=== PATIENT | female | born 1955 | race Caucasian/White ===

== ENCOUNTER 2017-04-13 17:44 | Observation (INO) ==
[2017-04-13] MEDS ORDERED: Ipratropium/Albuterol Neb 3 ML IH ONE ×3 (18:06→20:28)
--- NOTE | 2017-04-13 18:09 | Emergency Department Note ---
Disposition Clinical Impression: Shortness of breath Disposition: Admitted As Inpatient Condition: Fair Time of Disposition: 19:45 SOB HPI - General Chief Complaint: ED Shortness of Breath/Dyspnea Stated Complaint: ARTI Time Seen by Provider: 04/13/17 17:59 Source: patient, EMS Limitations: no limitations - History of Present Illness 2 day history of increased nonproductive cough and shortness of breath with wheezing. She got better with the DuoNeb given in the ambulance on the way here. She lives at a long-term because she had a BKA in September and hopefully return home in the next 30 days. Pt Subjective Complaint: shortness of breath, cough - Related Data Home Medications Medication Instructions Recorded Confirmed RX: Sertraline [Zoloft] 100 mg PO DAILY 04/16/15 04/13/17 RX: Mirtazapine [Remeron] 30 mg PO HS 03/16/16 11/02/16 RX: Atorvastatin [Lipitor] 10 mg PO DAILY 09/10/16 04/13/17 RX: Cholecalciferol (D-3) [Vitamin 1,000 mcg PO DAILY 09/10/16 04/13/17 D] RX: Clopidogrel [Plavix] 75 mg PO DAILY 09/10/16 04/13/17 RX: Furosemide [Lasix] 60 mg PO 0800,1400 09/10/16 04/13/17 RX: Gabapentin [Neurontin] 1,200 mg PO TID 09/10/16 04/13/17 RX: Insulin Glargine,Hum.rec.anlog 15 unit SQ BID 09/10/16 04/13/17 [Basaglar Kwikpen U-100] RX: Insulin LISPRO [HumaLOG] 2 - 8 units SQ ACHS 09/10/16 04/13/17 RX: Insulin LISPRO [HumaLOG] 8 units SQ TIDWM 09/10/16 04/13/17 RX: Loratadine [Allergy Relief] 10 mg PO DAILY 09/10/16 04/13/17 RX: Metoprolol [Lopressor] 100 mg PO BID 09/10/16 04/13/17 RX: Multivitamin,Stress Formula 1 tab PO DAILY 09/10/16 11/02/16 [Stress Formula] RX: [place]-3/Dha/Epa/Fish Oil [Fish 2 each PO DAILY 09/10/16 11/02/16 Oil 1,000 mg Softgel] RX: Potassium Chloride [K-Tab ER] 20 meq PO BID 09/10/16 04/13/17 RX: amLODIPine [Norvasc] 5 mg PO DAILY 09/10/16 04/13/17 RX: Acetaminophen [Tylenol] 1,000 mg PO Q6H PRN 11/02/16 11/02/16 RX: Albuterol Sulfate [Ventolin 2 puff IH Q6H PRN 11/02/16 11/02/16 Hfa] RX: Oxygen 2 l NS AD 11/02/16 04/13/17 RX: Sennosides/Docusate Sodium 1 each PO BID PRN 11/02/16 04/13/17 [Senna Plus] RX: Silver Sulfadiazine Cream 1 appl TP DAILY 11/02/16 04/13/17 [Silvadene] Metformin HCl [Fortamet] 500 mg PO BID 04/13/17 04/13/17 RX: Oxycodone HCl 2.5 mg PO HS 04/13/17 04/13/17 Previous Rx's Medication Instructions Recorded RX: Rivaroxaban [Xarelto] 15 mg PO 1700 tablet 08/10/16 RX: Diltiazem CD (24hr) [Cardizem 120 mg PO DAILY #30 cap.er.24h 09/14/16 CD] RX: OxyCODONE/APAP 5/325 [Percocet 1 each PO Q6H PRN #15 tab 09/14/16 5/325 MG] levoFLOXacin [Levaquin] 500 mg PO DAILY #7 tablet 11/05/16 Allergies Allergy/AdvReac Type Severity Reaction Status Date / Time codeine Allergy See Verified 09/10/16 08:39 Comments latex Allergy See Verified 04/13/17 18:02 Comments Paroxetine [From Paxil] Allergy See Verified 09/10/16 08:39 Comments Penicillins Allergy See Verified 09/10/16 08:39 Comments Constitutional: Denies: fever, chills ENT ED: Denies: congestion Cardiovascular: Reports: dyspnea on exertion. Denies: chest pain, palpitations Respiratory: Reports: cough, dyspnea. Denies: sputum production Gastrointestinal: Denies: nausea, vomiting, diarrhea Musculoskeletal: Denies: myalgia Neurological: Denies: headache Endocrine: Reports: fatigue Past Medical History - Past Medical History Medical history: Reports: arthritis, atrial fibrillation, COPD, coronary artery disease, DVT, diabetes, hyperlipidemia, hypertension, pulmonary embolus, renal disease, other Surgical history: Reports: other Psychiatric history: Reports: anxiety, depression BRIAR CUTTER history: Reports: no BRIAR CUTTER history - Social History Smoking Status: Current every day smoker Smokeless Tobacco Status: No Alcohol use: Reports: none Drug use: Reports: none Physical Exam - General Limitations: no limitations General appearance: alert, in no apparent distress - Head Head exam: atraumatic, normocephalic - Eye Eye exam: Present: normal appearance - ENT ENT exam: normal oropharynx, mucous membranes moist, normal external ear exam - Neck Neck exam: Present: normal inspection - Chest Chest inspection: Present: normal inspection, symmetric chest wall rise - Respiratory Respiratory exam: Present: wheezes (Inspiratory expiratory wheezes with fair air exchange.). Absent: respiratory distress - Cardiovascular Cardiovascular exam: Present: regular rate, normal rhythm, normal heart sounds. Absent: systolic murmur, diastolic murmur - Abdominal Exam Abdominal exam: Present: soft, Non-Tender - Extremities Exam Extremities exam: Present: normal inspection. Absent: pedal edema, calf tenderness (no Calf erythema cord or swelling) - Neurological Exam Neurological exam: Present: alert - Psychiatric Psychiatric exam: Present: normal affect, normal mood - Skin Skin exam: Present: warm, dry Course Vital Signs Temperature 98.7 F 04/13/17 17:48 Pulse Rate 101 04/13/17 17:48 Respiratory Rate 22 04/13/17 17:48 Blood Pressure 133/86 04/13/17 17:48 O2 Sat by Pulse Oximetry 97 04/13/17 17:48 Temperature 98.7 F 04/13/17 17:48 Pulse Rate 84 04/13/17 20:33 Respiratory Rate 18 04/13/17 20:33 Blood Pressure 161/109 04/13/17 20:33 O2 Sat by Pulse Oximetry 94 04/13/17 20:33 Oxygen Delivery Oxygen Delivery Nasal Cannula Shortness of Breath/Dyspnea - MDM Narrative Medical decision making narrative: Shortness of breath. There might be 2 aspects at work here. She appears to have responded to DuoNeb nebs so I believe she does have reactive airways. Chest x-ray suggestive of congestive heart failure. We will treat both. She is already on 80 of Lasix by mouth per day. She was given 100 mg IV 1 here in the ER and will be dosed she will 8. A Goff catheter was placed for urine output. Nitropaste was placed. I am told that we do have echocardiogram here at [facility] tomorrow in case a repeat echo would like to be obtained as it has been about 2 years since her last one. Diabetes. We will place her on an aggressive sliding scale and put her on a low dose of Solu-Medrol. I spoke with the covering hospitalist and presented the case. He accepted admission. She is in improved condition awaiting transfer to the floor. - Medical Records Medical records reviewed: Yes I reviewed the patient's medical records. - Lab Data Lab results reviewed: Yes I reviewed the patient's lab results. Result diagrams: 04/13/17 18:50 04/13/17 18:50 Lab Results 04/13/17 04/13/17 04/13/17 Range/Units 18:50 18:50 18:50 WBC 8.0 (4.3-11.1) K/mcL RBC 4.54 (3.82-4.97) M/mcL Hgb 12.7 (11.5-15.4) g/dL Hct 42.8 (35.3-44.9) % MCV 94.3 (83.0-100.0) fL MCH 28.0 (28.0-33.3) pg MCHC 29.7 L (31.6-35.5) g/dL RDW 18.5 H (11.5-14.5) % Plt Count 201 (140-400) K/mcL MPV 11.2 (9.4-12.4) fL Immature Gran % 1.1 (0-4) % Seg Neutrophils % 86.7 % Lymphocytes % 9.4 % Monocytes % 2.3 % Eosinophils % 0.1 % Basophils % 0.4 % Neutrophils # 6.9 (1.6-8.9) K/mcL Lymphocytes # 0.8 (0.6-4.6) K/mcL Monocytes # 0.2 (0.0-1.3) K/mcL Eosinophils # 0.0 (0.0-0.6) K/mcL Basophils # 0.0 (0.0-0.2) K/mcL Sodium 142 (136-145) mEq/L Potassium 5.1 (3.5-5.1) mEq/L Chloride 101 (98-107) mEq/L Carbon Dioxide 35 H (23-29) mEq/L BUN 28 H (8-23) mg/dL Creatinine 1.08 (0.60-1.20) mg/dL Est GFR ( Amer) > 60 (> 60) Est GFR (Non-Af Amer) 52 L (> 60) BUN/Creatinine Ratio 26 (6-26) Glucose 205 H (70-105) mg/dL Calculated Osmolality 305 H (280-300) Calcium 9.5 (8.6-10.3) mg/dL Total Bilirubin 0.4 (0.3-1.0) mg/dL AST 24 (13-39) Units/L ALT 18 (7-52) Units/L Alkaline Phosphatase 93 (34-104) Units/L Troponin I 0.03 (< 0.04) ng/mL B-Natriuretic Peptide 199 H (Less than 100) pg/mL Serum Total Protein 7.6 (6.4-8.9) g/dL Albumin 4.5 (3.5-5.7) g/dL Globulin 3.1 (2.4-3.5) g/dL Albumin/Globulin Ratio 1.5 (1.1-2.2) - Radiology Data Radiology results reviewed: Yes I reviewed the patient's radiology results. - EKG Data EKG attestation: Yes I reviewed and interpreted this EKG. EKG results narrative: EKG as interpreted by me atrial fibrillation 92 bpm. There appears to be multifocal PVC 2 and the rhythm strip. No T-wave abnormalities. Normal axis. No evidence of hypertrophy. No ST elevations or depressions. Except for low voltage in multiple leads on today's study no significant change from October 2016.
[2017-04-13 18:55] LABS: Basophils % 0.4 %; Eosinophils % 0.1 %; Hematocrit 42.8 % (35.3-44.9); Hemoglobin 12.7 g/dL (11.5-15.4); Immature Granulocytes % 1.1 % (0-4); Lymphocytes # 0.8 K/mcL (0.6-4.6); Lymphocytes % 9.4 %; Mean Corpuscular HGB Conc 29.7 g/dL (31.6-35.5); Mean Corpuscular Volume 94.3 fL (83.0-100.0); Mean Platelet Volume 11.2 fL (9.4-12.4); Monocytes # 0.2 K/mcL (0.0-1.3); Monocytes % 2.3 %; Neutrophils # 6.9 K/mcL (1.6-8.9); Platelet Count 201 K/mcL (140-400); Red Blood Count 4.54 M/mcL (3.82-4.97); Red Cell Distribution Width 18.5 % (11.5-14.5); Segmented Neutrophils % 86.7 %
[2017-04-13 19:08] LABS: Alanine Aminotransferase 18 Units/L (7-52); Albumin 4.5 g/dL (3.5-5.7); Albumin/Globulin Ratio 1.5 (1.1-2.2); Alkaline Phosphatase 93 Units/L (34-104); Aspartate Amino Transferase 24 Units/L (13-39); BUN/Creatinine Ratio 26 (6-26); Bilirubin,Total 0.4 mg/dL (0.3-1.0); Blood Urea Nitrogen 28 mg/dL (8-23); Calcium 9.5 mg/dL (8.6-10.3); Carbon Dioxide 35 mEq/L (23-29); Chloride 101 mEq/L (98-107); Globulin 3.1 g/dL (2.4-3.5); Glucose 205 mg/dL (70-105); Osmolality,Calculated 305 (280-300); Potassium 5.1 mEq/L (3.5-5.1); Sodium 142 mEq/L (136-145); Total Protein 7.6 g/dL (6.4-8.9); Troponin I 0.03 ng/mL (< 0.04); eGFR For African Americans > 60 (> 60); eGFR For Non-African Americans 52 (> 60)
[2017-04-13] MEDS ORDERED: Furosemide 40 MG/4 ML VIAL IVP ONE (20:02)
[2017-04-13] MEDS ORDERED: MethylPREDNISolone 40 MG/ML VIAL IVP ONE (20:03)
[2017-04-13] MEDS ORDERED: Nitroglycerin 1 INCH/GM PACKET TP SCH (21:45)
[2017-04-13] MEDS ORDERED: Albuterol 2.5 MG/3 ML NEBULIZER IH PRN (21:45)
[2017-04-13] MEDS ORDERED: Naloxone 0.4 MG/ML INJ IVP PRN (21:45)
[2017-04-13] MEDS ORDERED: *HR* Dextrose 50 % in Water (Syg) 50 ML SYRINGE IVP PRN (23:04)
[2017-04-13] MEDS ORDERED: Dextrose Gel 15 GM PO PRN ×2 (23:04)
[2017-04-13] MEDS ORDERED: D5% in Water 1,000 ML IVC PRN (23:04)
[2017-04-13] MEDS: Furosemide 20 MG/2 ML VIAL IVP SCH (23:15)
[2017-04-13] MEDS: MethylPREDNISolone 40 MG/ML VIAL IVP SCH (23:15)
[2017-04-14] MEDS: MethylPREDNISolone 40 MG/ML VIAL IVP SCH ×4 (03:22→22:03)
[2017-04-14 03:57] LABS: Basophils % 0.1 %; Hematocrit 42.3 % (35.3-44.9); Hemoglobin 12.7 g/dL (11.5-15.4); Lymphocytes # 0.9 K/mcL (0.6-4.6); Lymphocytes % 11.1 %; Mean Corpuscular Hemoglobin 27.4 pg (28.0-33.3); Mean Corpuscular Volume 91.4 fL (83.0-100.0); Mean Platelet Volume 11.4 fL (9.4-12.4); Monocytes # 0.2 K/mcL (0.0-1.3); Neutrophils # 6.6 K/mcL (1.6-8.9); Platelet Count 189 K/mcL (140-400); Red Blood Count 4.63 M/mcL (3.82-4.97); Red Cell Distribution Width 18.1 % (11.5-14.5); Segmented Neutrophils % 84.8 %
[2017-04-14 04:13] LABS: BUN/Creatinine Ratio 30 (6-26); Blood Urea Nitrogen 30 mg/dL (8-23); Calcium 9.3 mg/dL (8.6-10.3); Carbon Dioxide 33 mEq/L (23-29); Chloride 101 mEq/L (98-107); Glucose 243 mg/dL (70-105); Magnesium 2.2 mg/dL (1.6-2.6); Osmolality,Calculated 308 (280-300); Potassium 4.3 mEq/L (3.5-5.1); Sodium 142 mEq/L (136-145); eGFR For African Americans > 60 (> 60); eGFR For Non-African Americans 56 (> 60)
[2017-04-14] MEDS: Furosemide 20 MG/2 ML VIAL IVP SCH (06:29)
[2017-04-14] MEDS: Insulin LISPRO 300 UNITS/3 ML VIAL SQ SCH ×3 (08:35→16:57)
[2017-04-14] MEDS: Gabapentin 400 MG CAPSULE PO SCH ×3 (08:36→22:02)
[2017-04-14] MEDS: Diltiazem CD (24hr) 120 MG CAPSULE PO SCH (08:37)
[2017-04-14] MEDS: levoFLOXacin 500 MG TABLET PO SCH (08:37)
[2017-04-14] MEDS: Loratadine 10 MG TABLET PO SCH (08:37)
[2017-04-14] MEDS: amLODIPine 5 MG TABLET PO SCH (08:37)
[2017-04-14] MEDS ORDERED: NON-FORMULARY MEDICATION 1 EACH EACH (Potassium Chloride [K-Tab Er] 20 MEQ) PO SCH (09:00)
--- NOTE | 2017-04-14 12:12 | Internal Med History&Physical ---
Date of Encounter: 04/14/17 Time of Encounter: 12:06 Assessment and Plan (1) Acute exacerbation of chronic obstructive pulmonary disease (COPD) Current visit: No Status: Acute The etiology is uncertain whether exacerbation with asthma or with congestive heart failure. We will evaluate echocardiogram continue IV antibiotics and steroids, follow clinically. She will be maintained on oxygen as she desaturates when on room air. 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 (3) Diabetes mellitus Current visit: No Status: Chronic We will continue current regimen and sliding scale insulin. Qualifiers: Diabetes mellitus type: type 2 Diabetes mellitus complication status: with skin complications Diabetes mellitus complication detail: with foot ulcer Diabetes mellitus meterman insulin use: with alf use Qualified Code(s) : E11.621 - Type 2 diabetes mellitus with foot ulcer; L97.509 - Non-pressure chronic ulcer of other part of unspecified foot with unspecified severity; Z79.4 - jail (current) use of insulin (4) Atrial fibrillation Current visit: No Status: Acute Chronic with rate controlled. She is treated with chronic Xarelto Qualifiers: Atrial fibrillation type: chronic Qualified Code(s): I48.2 - Chronic atrial fibrillation (5) H/O deep venous thrombosis Current visit: No Status: Resolved On chronic Xarelto. (6) Chronic venous hypertension (idiopathic) with ulcer of left lower extremity Current visit: No Status: Chronic As mentioned in exam, seems improved. (7) Hypertension Current visit: No Status: Chronic Will continue current regimen and monitor. Qualifiers: Hypertension type: essential hypertension Qualified Code(s): I10 - Essential (primary) hypertension (8) Chronic kidney disease Current visit: No Status: Chronic Clinically stable and will follow with diuresis. Qualifiers: Chronic kidney disease stage: stage 3 (moderate) Qualified Code(s): N18.3 - Chronic kidney disease, stage 3 (moderate) (9) Tobacco abuse Current visit: No Status: Chronic She has been smoking until yesterday, even at the facility, going outside. She states that she has no quit smoking, totally. She thinks she was only using about 6 cigarettes per day while at the facility but before was smoking for roughly 40-80 packyears. Internal Medicine - H&P: HPI Admitted From: Long-term Nursing Facility Plans for Post Hospital Care: Transfer Longterm Facility History of present illness: Ms. 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 She had been fitted with a prosthesis and underwent therapy. She was to be discharged about a month ago. She entered a new program which required 30 days more of her residence at the extended care facility and was to go home yesterday. However, over the last week, she has had progressive increase of cough with minimal increase in shortness of breath. Yesterday, she became more short of breath, began producing clear white sputum in large amounts, denies hemoptysis or colored phlegm, etc. She denied fevers chills or sweats until this morning when she began to sweat, mildly. She has been using intermittent oxygen at the facility for the last several weeks, at least. She states that recently, this has been use, only at night. She is not sure of the flow level. She denies prior history of congestive heart failure states it only recently where she diagnosed with COPD. She admits to having had an echocardiogram but she is not sure if it was in the last year, or not. She denies upper respiratory symptoms, sore throat, other symptoms GI or urinary changes, etc. She is status post bilateral cataract replacement with intraocular lens implants. She has only central mandibular teeth. She states she has had 4 strokes, most mild. She has been in atrial fibrillation long-term with treatment with Peridex and recently had anticoagulation changed. She has over 20 years history of diabetes, type II with peripheral neuropathy, hypertension, hyperlipidemia. Review of systems is otherwise unremarkable. Past Med Surg Social Fam HX - Past Medical History Medical history: arthritis, atrial fibrillation, COPD, coronary artery disease, DVT, diabetes, hyperlipidemia, hypertension, pulmonary embolus, renal disease, other Psychiatric history: anxiety, depression - Past Surgical History Surgical History: other - Social History Smoking Status: Current every day smoker Smokeless Tobacco Status: No Alcohol use: none Drug use: none - Family History Mother Family Member Ethnicity: Non- Twin of Family Member: Yes, Identical Living Status: Age at : 72 Cause of : Alzheimers Hx Family Cardiac Disorders: Yes Hx Family Respiratory Disorders: No Hx Family Cancer: Yes (aunt) Hx Family GI Disorders: Yes Hx Family Endocrine Disorder: Yes Hx Family Neurologic Disorders: Yes Hx Family HEENT Disorders: No Hx Family Autoimmune Disorders: No Father Living Status: Age at : 74 Cause of : Diabetes Mellitus Hx Family Cardiac Disorders: Yes Hx Family Endocrine Disorder: Yes (diabetes) Brother Living Status: Age at : 40 Hx Family Endocrine Disorder: Yes (diabetes) Internal Medicine - H&P: Meds Sertraline [Zoloft] 100 mg PO DAILY 04/16/15 [History] Mirtazapine [Remeron] 30 mg PO HS 03/16/16 [History] Rivaroxaban [Xarelto] 15 mg PO 1700 tablet 08/10/16 [Rx] Atorvastatin [Lipitor] 10 mg PO DAILY 09/10/16 [History] Cholecalciferol (D-3) [Vitamin D] 1,000 mcg PO DAILY 09/10/16 [History] Clopidogrel [Plavix] 75 mg PO DAILY 09/10/16 [History] Furosemide [Lasix] 60 mg PO 0800,1400 09/10/16 [History] Gabapentin [Neurontin] 1,200 mg PO TID 09/10/16 [History] Insulin Glargine,Hum.rec.anlog [Basaglar Kwikpen U-100] 15 unit SQ BID 09/10/16 [History] Insulin LISPRO [HumaLOG] 2 - 8 units SQ ACHS 09/10/16 [History] Insulin LISPRO [HumaLOG] 8 units SQ TIDWM 09/10/16 [History] Loratadine [Allergy Relief] 10 mg PO DAILY 09/10/16 [History] Metoprolol [Lopressor] 100 mg PO BID 09/10/16 [History] Multivitamin,Stress Formula [Stress Formula] 1 tab PO DAILY 09/10/16 [History] [place]-3/Dha/Epa/Fish Oil [Fish Oil 1,000 mg Softgel] 2 each PO DAILY 09/10/16 [ History] Potassium Chloride [K-Tab ER] 20 meq PO BID 09/10/16 [History] amLODIPine [Norvasc] 5 mg PO DAILY 09/10/16 [History] Diltiazem CD (24hr) [Cardizem CD] 120 mg PO DAILY #30 cap.er.24h 09/14/16 [Rx] OxyCODONE/APAP 5/325 [Percocet 5/325 MG] 1 each PO Q6H PRN #15 tab 09/14/16 [Rx] Acetaminophen [Tylenol] 1,000 mg PO Q6H PRN 11/02/16 [History] Albuterol Sulfate [Ventolin Hfa] 2 puff IH Q6H PRN 11/02/16 [History] Oxygen 2 l NS AD 11/02/16 [History] Sennosides/Docusate Sodium [Senna Plus] 1 each PO BID PRN 11/02/16 [History] Silver Sulfadiazine Cream [Silvadene] 1 appl TP DAILY 11/02/16 [History] levoFLOXacin [Levaquin] 500 mg PO DAILY #7 tablet 11/05/16 [Rx] Metformin HCl [Fortamet] 500 mg PO BID 04/13/17 [History] Oxycodone HCl 2.5 mg PO HS 04/13/17 [History] 3 Allergy/AdvReac Type Severity Reaction Status Date / Time codeine Allergy See Verified 09/10/16 08:39 Comments latex Allergy See Verified 04/13/17 18:02 Comments Paroxetine [From Paxil] Allergy See Verified 09/10/16 08:39 Comments Penicillins Allergy See Verified 09/10/16 08:39 Comments All Systems PM: A 10-system review of systems was performed and is negative for pertinent findings except as documented above in the HPI. Review of systems: Unremarkable except as per history of present illness. - Constitutional Vitals: Temp Pulse Resp BP Pulse Ox 98 F 86 16 144/76 96 04/14/17 07:34 04/14/17 11:59 04/14/17 11:59 04/14/17 11:59 04/14/17 11:59 General appearance: Present: A&O X 3, answers questions appropriately - Head Head exam: Present: atraumatic, normal inspection, normocephalic - Eye Eye exam: Present: EOMI, PERRL, conjuntiva pink. Absent: conjunctival injection , scleral icterus - ENT ENT exam: Present: mucous membranes moist, normal external ear exam Additional comments: Patient is edentulous except for central mandibular teeth. No intraoral lesions seen. - Neck Neck exam general surgery: Present: full ROM, normal inspection, supple, trachea midline. Absent: lymphadenopathy, tenderness, nuchal rigidity, thyromegaly Additional comments: Carotids are 2+ without bruit. - Respiratory Respiratory exam: Absent: accessory muscle use Additional comments: She has a few wheezes, scattered diffusely. Minimal rales at bases. No localizing findings. - Cardiovascular Cardiovascular exam: Present: irregular rhythm. Absent: systolic murmur Additional comments: Irregularly irregular consistent with atrial fibrillation. - GI/Abdominal GI/Abdominal exam: Present: normal bowel sounds, soft. Absent: bruit, hepatomegaly, mass, splenomegaly, tenderness Additional comments: Obese and therefore difficult to palpate deeply. - Extremities Exam Extremities exam: Present: normal inspection, warm. Absent: calf tenderness, pedal edema Additional comments: Status post right BKA, status post left digit - all -amputation capillary refill is good at both amputation sites with no open lesions. She has evidence of chronic venous stasis at the left ankle and calf but this seems to have improved and there is no evidence of cellulitis, currently. - Back Exam Back exam: Absent: CVA tenderness (L), CVA tenderness (R) - Neurological Exam Neurological exam: Present: CN II-XII intact, oriented X3, no focal deficits. Absent: facial droop, speech deficit - Psychiatric Psychiatric exam: Present: normal affect. Absent: agitated, anxious, depressed - Skin Skin exam: Present: normal color. Absent: cyanosis, diaphoretic Additional comments: Stump is well-healed without open wound or drainage. Internal Med - H&P Results - Labs CBC & Chem 7: 04/14/17 03:45 04/14/17 03:45 Labs: Short CBC 04/14/17 Range/Units 03:45 WBC 7.7 (4.3-11.1) K/mcL Hgb 12.7 (11.5-15.4) g/dL Hct 42.3 (35.3-44.9) % Plt Count 189 (140-400) K/mcL Neutrophils # 6.6 (1.6-8.9) K/mcL BMP 04/14/17 03:45 Sodium 142 Potassium 4.3 Chloride 101 Carbon Dioxide 33 H BUN 30 H Creatinine 1.01 Glucose 243 H Calcium 9.3 Cardiac Enzymes 04/14/17 04/14/17 Range/Units 03:45 09:44 Troponin I 0.03 < 0.03 (< 0.04) ng/mL
[2017-04-14] MEDS: Nitroglycerin 1 INCH/GM PACKET TP SCH ×2 (13:11→22:03)
[2017-04-14] MEDS: Ipratropium/Albuterol Neb 3 ML IH PRN ×2 (14:47→22:01)
[2017-04-14] MEDS: Furosemide 40 MG/4 ML VIAL IVP SCH (16:56)
[2017-04-14] MEDS ORDERED: *HR* Rivaroxaban 15 MG TABLET PO SCH (17:00)
--- NOTE | 2017-04-14 19:37 | Electrocardiograph Report ---
[place] [id number] Test Date: 2017-04-13 Pat Name: Clementine Hartmann Department: 2000 Room: 118 Gender: F Communications [employer] Manager: : [id number] Requested By: Hoang Bach Order Number: [id number] Reading MD: Brent Washburn MD Measurements Intervals [place] Rate: 92 P: [place]: 0 QRS: 27 QRSD: 102 T: 85 QT: 347 QTc: 396 Interpretive Statements ATRIAL FIBRILLATION WITH ABERRANT CONDUCTION OR VENTRICULAR PREMATURE COMPLEXES LOW QRS VOLTAGE IN EXTREMITY LEADS Poor R wave progression Electronically Signed On 04-14-2017 19:36:00 EST by Brent Washburn MD
[2017-04-14] MEDS ORDERED: Insulin LISPRO 300 UNITS/3 ML VIAL SQ SCH (21:00)
[2017-04-14] MEDS ORDERED: Mirtazapine 15 MG TABLET PO SCH (21:00)
[2017-04-14 22:58] LABS: Bilirubin,Urine Negative (Negative); Blood,Urine Trace-lysed (Negative); Clarity,Urine Clear (Clear); Color,Urine Yellow (Yellow); Glucose,Urine (UA) 500 mg/dL (Normal); Ketones,Urine Negative (Negative); Leukocyte Esterase,Urine Negative (Negative); Nitrite,Urine Negative (Negative); PH,Urine 5.5 pH Units (5.0-8.0); Protein,Urine Negative (Neg-Trace); Specific Gravity,Urine 1.015 (1.010-1.025); Urobilinogen,Urine Normal (Normal)
[2017-04-15 01:14] LABS: Bacteria,Urine Few per hpf (None-Few); Squamous Epithelial Cell,Urine Few per lpf (None-Few)
[2017-04-15] MEDS: MethylPREDNISolone 40 MG/ML VIAL IVP SCH ×2 (04:16→13:32)
[2017-04-15] MEDS: Insulin LISPRO 300 UNITS/3 ML VIAL SQ SCH ×2 (10:12→13:32)
--- NOTE | 2017-04-15 13:23 | Discharge Summary ---
Date of Encounter: 04/15/17 Time of Encounter: 13:18 - Discharge Diagnosis (1) Shortness of breath Priority: Primary Status: Acute Comments: Patient was admitted for exacerbation of COPD. Treated with corticosteroids and antibiotics. Patient will continue on Levaquin for 7 days and continue on a tapered dosing of prednisone after discharge. Currently patient denies any fever/chills or shortness of breath. 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 No complaints of palpitations or chest discomforts. Echocardiogram was nonacute. CM showed SR-ST with occasional PAC' s. Will continue on current meds at [facility]. Qualifiers: Lower extremity ulceration location: other part of foot Qualified Code(s): I70.235 - Atherosclerosis of [place] arteries of right leg with ulceration of other part of foot; I70.245 - Atherosclerosis of [place] arteries of left leg with ulceration of other part of foot (3) HTN (hypertension) Priority: Secondary Status: Acute Comments: No acute issues. Continue on current meds at [facility] Qualifiers: Hypertension type: essential hypertension Qualified Code(s): I10 - Essential (primary) hypertension Hospital course: Ms. 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 She had been fitted with a prosthesis and underwent therapy at an area SNF. However, over the last week, she has had progressive increase of cough with minimal increase in shortness of breath. Her cough began producing clear white sputum in large amounts, denied hemoptysis or colored phlegm, etc. She denied fevers chills or sweats until this morning when she began to sweat, mildly. Patient was treated for exacerbation of COPD and well admitted was treated with corticosteroids and antibiotics. Patient's respiratory effort improved over time and she currently denies any shortness of breath. Patient continues on oxygen with saturations greater than 90%. Chest x-ray was reviewed which showed no infectious process. Patient will be discharged to [facility] with 7 days of Levaquin and a tapering dose of prednisone. Discharge discussed with: patient Time spent discussing smoking cessation with patient: 3 to 10 minutes - Time Spent with Patient Total time spent providing and/or coordinating discharge services: - Discharge Medications Home Medications: Sertraline [Zoloft] 100 mg PO DAILY 04/16/15 [History] Mirtazapine [Remeron] 30 mg PO HS 03/16/16 [History] Rivaroxaban [Xarelto] 15 mg PO 1700 tablet 08/10/16 [Rx] Atorvastatin [Lipitor] 10 mg PO DAILY 09/10/16 [History] Cholecalciferol (D-3) [Vitamin D] 1,000 mcg PO DAILY 09/10/16 [History] Clopidogrel [Plavix] 75 mg PO DAILY 09/10/16 [History] Furosemide [Lasix] 60 mg PO 0800,1400 09/10/16 [History] Gabapentin [Neurontin] 1,200 mg PO TID 09/10/16 [History] Insulin Glargine,Hum.rec.anlog [Basaglar Kwikpen U-100] 15 unit SQ BID 09/10/16 [History] Insulin LISPRO [HumaLOG] 2 - 8 units SQ ACHS 09/10/16 [History] Insulin LISPRO [HumaLOG] 8 units SQ TIDWM 09/10/16 [History] Loratadine [Allergy Relief] 10 mg PO DAILY 09/10/16 [History] Metoprolol [Lopressor] 100 mg PO BID 09/10/16 [History] Multivitamin,Stress Formula [Stress Formula] 1 tab PO DAILY 09/10/16 [History] [place]-3/Dha/Epa/Fish Oil [Fish Oil 1,000 mg Softgel] 2 each PO DAILY 09/10/16 [ History] Potassium Chloride [K-Tab ER] 20 meq PO BID 09/10/16 [History] amLODIPine [Norvasc] 5 mg PO DAILY 09/10/16 [History] Diltiazem CD (24hr) [Cardizem CD] 120 mg PO DAILY #30 cap.er.24h 09/14/16 [Rx] OxyCODONE/APAP 5/325 [Percocet 5/325 MG] 1 each PO Q6H PRN #15 tab 09/14/16 [Rx] Acetaminophen [Tylenol] 1,000 mg PO Q6H PRN 11/02/16 [History] Albuterol Sulfate [Ventolin Hfa] 2 puff IH Q6H PRN 11/02/16 [History] Oxygen 2 l NS AD 11/02/16 [History] Sennosides/Docusate Sodium [Senna Plus] 1 each PO BID PRN 11/02/16 [History] Silver Sulfadiazine Cream [Silvadene] 1 appl TP DAILY 11/02/16 [History] levoFLOXacin [Levaquin] 500 mg PO DAILY #7 tablet 11/05/16 [Rx] Metformin HCl [Fortamet] 500 mg PO BID 04/13/17 [History] Oxycodone HCl 2.5 mg PO HS 04/13/17 [History] Allergies/Adverse Reactions: 3 Allergy/AdvReac Type Severity Reaction Status Date / Time codeine Allergy See Verified 09/10/16 08:39 Comments latex Allergy See Verified 04/13/17 18:02 Comments Paroxetine [From Paxil] Allergy See Verified 09/10/16 08:39 Comments Penicillins Allergy See Verified 09/10/16 08:39 Comments Date of admission: 04/13/17 21:56 Primary care physician: Violet Guzman Discharging clinician: Hoang Bach (\) - Constitutional Vitals: Temp Pulse Resp BP Pulse Ox 97.6 F 72 16 126/68 96 04/15/17 11:47 04/15/17 11:47 04/15/17 11:47 04/15/17 11:47 04/15/17 11:47 General appearance: Present: A&O X 3, pleasant, answers questions appropriately - Head Head exam: Present: atraumatic, normocephalic - Eye Eye exam: Present: PERRL, conjuntiva pink, sclera anicteric Pupils: Present: PERRL - Neck Neck exam general surgery: Present: supple, trachea midline. Absent: lymphadenopathy - Respiratory Respiratory exam: Present: CTAB, rales, wheezes. Absent: accessory muscle use, rhonchi Additional comments: Lungs noted to have diminished breath sounds throughout lower half of feels. Slight expiratory wheeze heard. Patient continues on oxygen with saturations greater than 90%. Respiratory effort appears relaxed while at rest. No productive cough - Cardiovascular Cardiovascular exam: Present: RRR, +S1, +S2. Absent: diastolic murmur, gallop, rubs, systolic murmur Additional comments: environmental monitoring specialist shows sinus tachycardia with occasional PACs - GI/Abdominal GI/Abdominal exam: Present: normal bowel sounds, soft, no peritoneal signs. Absent: distended, tenderness - Extremities Exam Extremities exam: Present: warm, radial pulses palpable and symmetrical. Absent : calf tenderness, cyanotic, pedal edema Additional comments: Patient has right BKA with stump incision appearing healthy and well healed. 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 No pedal edema noted. Unable to palpate pedal pulses on left. - Neurological Exam Neurological exam: Present: CN II-XII intact, oriented X3, no focal deficits. Absent: pronater drift, facial droop, speech deficit - Skin Skin exam: Present: dry, intact - Patient Status Disposition: Transfer SNF Condition: Fair Functional capacity at discharge: uses cane/walker Overall status at discharge: patient is progressing back to baseline - Discharge Instructions Follow Up With: Violet Guzman MD [Primary Care Provider] - - Diet and Activity Activity: ambulate only with your walker, as per physical therapy, increase activity as tolerated, wear oxygen at all times Diet: diabetic diet
[2017-04-15] MEDS: Furosemide 40 MG/4 ML VIAL IVP SCH (13:31)
[2017-04-15] MEDS: Diltiazem CD (24hr) 120 MG CAPSULE PO SCH (13:33)
[2017-04-15] MEDS: Loratadine 10 MG TABLET PO SCH (13:33)
[2017-04-15] MEDS: Gabapentin 400 MG CAPSULE PO SCH (13:33)
[2017-04-15] MEDS: levoFLOXacin 500 MG TABLET PO SCH (13:34)
[2017-04-15] MEDS: amLODIPine 5 MG TABLET PO SCH (13:35)
[2017-04-15] MEDS: Nitroglycerin 1 INCH/GM PACKET TP SCH (13:35)
--- NOTE | 2017-04-15 13:57 | Physician Discharge Referral ---
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 Priority: Secondary Status: Chronic (3) HTN (hypertension) Priority: Secondary Status: Acute Prognosis: Good Aware of Diagnosis: Patient Aware of Prognosis: Patient - Transfer Medications Home Medications: Sertraline [Zoloft] 100 mg PO DAILY 04/16/15 [History] Mirtazapine [Remeron] 30 mg PO HS 03/16/16 [History] Rivaroxaban [Xarelto] 15 mg PO 1700 tablet 08/10/16 [Rx] Atorvastatin [Lipitor] 10 mg PO DAILY 09/10/16 [History] Cholecalciferol (D-3) [Vitamin D] 1,000 mcg PO DAILY 09/10/16 [History] Clopidogrel [Plavix] 75 mg PO DAILY 09/10/16 [History] Furosemide [Lasix] 60 mg PO 0800,1400 09/10/16 [History] Gabapentin [Neurontin] 1,200 mg PO TID 09/10/16 [History] Insulin Glargine,Hum.rec.anlog [Basaglar Kwikpen U-100] 15 unit SQ BID 09/10/16 [History] Insulin LISPRO [HumaLOG] 2 - 8 units SQ ACHS 09/10/16 [History] Insulin LISPRO [HumaLOG] 8 units SQ TIDWM 09/10/16 [History] Loratadine [Allergy Relief] 10 mg PO DAILY 09/10/16 [History] Metoprolol [Lopressor] 100 mg PO BID 09/10/16 [History] Multivitamin,Stress Formula [Stress Formula] 1 tab PO DAILY 09/10/16 [History] [place]-3/Dha/Epa/Fish Oil [Fish Oil 1,000 mg Softgel] 2 each PO DAILY 09/10/16 [ History] Potassium Chloride [K-Tab ER] 20 meq PO BID 09/10/16 [History] amLODIPine [Norvasc] 5 mg PO DAILY 09/10/16 [History] Diltiazem CD (24hr) [Cardizem CD] 120 mg PO DAILY #30 cap.er.24h 09/14/16 [Rx] OxyCODONE/APAP 5/325 [Percocet 5/325 MG] 1 each PO Q6H PRN #15 tab 09/14/16 [Rx] Acetaminophen [Tylenol] 1,000 mg PO Q6H PRN 11/02/16 [History] Albuterol Sulfate [Ventolin Hfa] 2 puff IH Q6H PRN 11/02/16 [History] Oxygen 2 l NS AD 11/02/16 [History] Sennosides/Docusate Sodium [Senna Plus] 1 each PO BID PRN 11/02/16 [History] Silver Sulfadiazine Cream [Silvadene] 1 appl TP DAILY 11/02/16 [History] levoFLOXacin [Levaquin] 500 mg PO DAILY #7 tablet 11/05/16 [Rx] Metformin HCl [Fortamet] 500 mg PO BID 04/13/17 [History] Oxycodone HCl 2.5 mg PO HS 04/13/17 [History] Allergies/Adverse Reactions: 3 Allergy/AdvReac Type Severity Reaction Status Date / Time codeine Allergy See Verified 09/10/16 08:39 Comments latex Allergy See Verified 04/13/17 18:02 Comments Paroxetine [From Paxil] Allergy See Verified 09/10/16 08:39 Comments Penicillins Allergy See Verified 09/10/16 08:39 Comments - Respiratory Orders Oxygen / L per min (Titrate to keep oximetry >90%) Smoking Cessation: Smoking cessation has been advised. For more information, call the [place] Tobacco Quit Line at 1-251-NFPO-NOW. - Ancillary Orders May use pressure relief devices daily prn - Mobility Orders Ambulate - Rehabiliation Orders Rehab Potential: Fair Rehab Orders: ROM Exercises, Evaluation for Physical Therapy, Evaluation for Occupational Therapy - Treatments Skin tear care topically daily PRN per policy, May check for fecal impaction rectally daily PRN, Fleet enema rectally every other day PRN cleansing purposes - Diet Orders No Concentrated Sweets CERTIFICATION: I certify that the transfer of the above named patient to an Extended Care Facility is necessary for the continuing treatment of the diagnosis listed. The above information is true and accurate reflection of patient's current condition. Confidential - Redisclosure prohibited without a patient's written consent.
[2017-04-15 16:47] VITALS: BP 161/80
[2017-04-16] MEDS ORDERED: predniSONE 20 MG TABLET PO SCH (09:00)
== END 2017-04-15 17:30 ==
LOC: EMEROOGRE 17:44 → INPGRE 17:44

== ENCOUNTER 2020-10-18 10:05 | Inpatient (IN) ==
[2020-10-18] MEDS ORDERED: levoFLOXacin 750 MG/150 ML 750 MG/150 ML BAG IVPB ONE (10:37)
[2020-10-18] MEDS ORDERED: 0.9 % Sodium Chloride 1,000 ML IVC SCH ×2 (10:45→13:00)
[2020-10-18 11:48] LABS: Bilirubin,Urine Negative (Negative); Blood,Urine Large (Negative); Clarity,Urine Cloudy (Clear); Color,Urine Yellow (Yellow); Glucose,Urine (UA) Normal (Normal); Ketones,Urine Negative (Negative); Leukocyte Esterase,Urine Moderate (Negative); Nitrite,Urine Negative (Negative); PH,Urine 5.5 pH Units (5.0-8.0); Protein,Urine 100 mg/dL (Neg-Trace); Urobilinogen,Urine Normal (Normal)
[2020-10-18 11:49] LABS: Basophils % 0.2 %; Eosinophils % 0.3 %; Hematocrit 40.1 % (35.3-44.9); Hemoglobin 12.9 g/dL (11.5-15.4); Immature Granulocytes % 0.8 % (0-4); Lymphocytes # 0.4 K/mcL (0.6-4.6); Lymphocytes % 5.4 %; Mean Corpuscular HGB Conc 32.2 g/dL (31.6-35.5); Mean Corpuscular Hemoglobin 28.6 pg (28.0-33.3); Mean Corpuscular Volume 88.9 fL (83.0-100.0); Mean Platelet Volume 11.8 fL (9.4-12.4); Monocytes # 0.2 K/mcL (0.0-1.3); Monocytes % 2.3 %; Neutrophils # 5.9 K/mcL (1.6-8.9); Platelet Count 147 K/mcL (140-400); Red Blood Count 4.51 M/mcL (3.82-4.97); White Blood Count 6.5 K/mcL (4.3-11.1)
[2020-10-18 11:50] LABS: Bacteria,Urine Moderate per hpf (None-Few); Squamous Epithelial Cell,Urine Few per hpf (None-Few); WBC,Urine 15-30 per hpf (0-3)
[2020-10-18 11:56] LABS: INR 2.3; Prothrombin Time 25.5 Seconds (9.4-12.1)
[2020-10-18 11:59] LABS: Activated Partial Thrombo Time 40.3 Seconds (26.0-36.0)
[2020-10-18 12:04] LABS: Albumin 3.4 g/dL (3.5-5.7); Bilirubin,Direct 0.2 mg/dL (0.0-0.2); Bilirubin,Indirect 0.2 mg/dL (0.0-1.0); Bilirubin,Total 0.4 mg/dL (0.3-1.0); Calcium 7.8 mg/dL (8.6-10.3); Globulin 3.3 g/dL (2.4-3.5); Magnesium 1.9 mg/dL (1.6-2.6); Phosphorous 4.5 mg/dL (2.7-4.5); Potassium 4.1 mEq/L (3.5-5.1); Total Protein 6.7 g/dL (6.4-8.9)
[2020-10-18 12:27] LABS: Troponin I 0.04 ng/mL (< 0.04)
[2020-10-18] MEDS ORDERED: Melatonin 3 MG TABLET PO PRN (15:38)
[2020-10-18] MEDS ORDERED: Mag Hydrox/Al Hydrox/Simeth 30 ML UDC PO PRN (15:38)
[2020-10-18] MEDS ORDERED: Ondansetron 4 MG/2 ML VIAL IVP PRN (15:38)
[2020-10-18] MEDS ORDERED: Acetaminophen 325 MG TABLET PO PRN (15:38)
[2020-10-18] MEDS ORDERED: Ondansetron ODT 4 MG TAB.RAPDIS SL PRN (15:38)
[2020-10-18] MEDS ORDERED: Naloxone 0.4 MG/ML INJ IVP PRN (15:38)
[2020-10-18] MEDS ORDERED: MOM Conc 10 ML UD.LIQ PO PRN (15:38)
[2020-10-18] MEDS ORDERED: *HR* HYDROcodone/Acet 5/325 mg TABLET PO PRN (15:43)
[2020-10-18] MEDS ORDERED: Azithromycin 500 MG in 0.9 % Sodium Chloride 250 ML IVPB SCH (16:00)
[2020-10-18] MEDS ORDERED: haloperidoL 1 MG TABLET PO PRN (16:27)
[2020-10-18] MEDS ORDERED: Haloperidol Lactate 5 MG/ML VIAL IM ONE (16:27)
[2020-10-18] MEDS ORDERED: Dextrose Gel 15 GM/37.5 ML TUBE PO PRN ×4 (16:29→20:50)
[2020-10-18] MEDS ORDERED: D5% in Water 1,000 ML IVC PRN ×2 (16:29→20:50)
[2020-10-18] MEDS ORDERED: *HR* Dextrose 50 % in Water (Vial) 50 ML VIAL IVP PRN ×2 (16:29→20:50)
[2020-10-18] MEDS: cefTRIAXone 1,000 MG in Water for inj. (sterile) 10 ML IVP SCH (16:48)
[2020-10-18] MEDS ORDERED: Haloperidol Lactate 5 MG/ML VIAL IM PRN (18:12)
[2020-10-18] MEDS: 0.9 % Sodium Chloride 1,000 ML IVC SCH (18:45)
[2020-10-18 19:28] LABS: C-Reactive Protein 205 mg/L (Less than 10)
[2020-10-18 19:45] LABS: Ferritin 876 ng/mL (10-120)
[2020-10-18] MEDS: Melatonin 3 MG TABLET PO SCH (20:13)
[2020-10-18] MEDS: Gabapentin 300 MG CAPSULE PO SCH (20:13)
[2020-10-18] MEDS: Apixaban 5 MG TABLET PO SCH (20:13)
[2020-10-18] MEDS: Metoprolol 100 MG TABLET PO SCH (20:13)
[2020-10-18] MEDS ORDERED: *HR* Metformin 850 MG TABLET PO SCH (21:00)
[2020-10-18] MEDS ORDERED: Metoprolol 100 MG TABLET PO SCH (21:00)
[2020-10-18] MEDS ORDERED: Insulin DETEMIR 100 UNIT/ML per UNIT SUBQ ONE (21:00)
[2020-10-18] MEDS: Insulin LISPRO 300 UNITS/3 ML VIAL SUBQ SCH (21:37)
[2020-10-19 06:18] LABS: Hematocrit 37.5 % (35.3-44.9); Hemoglobin 12.1 g/dL (11.5-15.4); Mean Corpuscular HGB Conc 32.3 g/dL (31.6-35.5); Mean Corpuscular Hemoglobin 28.7 pg (28.0-33.3); Mean Corpuscular Volume 89.1 fL (83.0-100.0); Mean Platelet Volume 11.8 fL (9.4-12.4); Platelet Count 134 K/mcL (140-400); Red Blood Count 4.21 M/mcL (3.82-4.97); Red Cell Distribution Width 15.9 % (11.5-14.5); White Blood Count 3.4 K/mcL (4.3-11.1)
[2020-10-19 06:45] LABS: Albumin 2.9 g/dL (3.5-5.7); Albumin/Globulin Ratio 0.9 (1.1-2.2); Bilirubin,Total 0.2 mg/dL (0.3-1.0); Calcium 7.5 mg/dL (8.6-10.3); Globulin 3.3 g/dL (2.4-3.5); Magnesium 1.9 mg/dL (1.6-2.6); Potassium 4.5 mEq/L (3.5-5.1); Total Protein 6.2 g/dL (6.4-8.9)
[2020-10-19] MEDS: Apixaban 5 MG TABLET PO SCH ×2 (08:01→20:52)
[2020-10-19] MEDS: Venlafaxine XR (24 HR) 75 MG CAP.ER.24H PO SCH (08:01)
[2020-10-19] MEDS: Gabapentin 300 MG CAPSULE PO SCH ×2 (08:01→20:52)
[2020-10-19] MEDS: Metoprolol 100 MG TABLET PO SCH ×2 (08:01→20:52)
[2020-10-19] MEDS: DilTIAZem CD (24hr) 120 MG CAP.ER.24H PO SCH (08:01)
[2020-10-19] MEDS: Cholecalciferol (D-3) 1,000 UNIT (25MCG) TABLET PO SCH (08:01)
[2020-10-19] MEDS: Loratadine 10 MG TABLET PO SCH (08:01)
[2020-10-19] MEDS: Vitamin B Complex/Vit C/Vit E 1 EACH TABLET PO SCH (08:01)
[2020-10-19] MEDS: Azithromycin 500 MG in 0.9 % Sodium Chloride 250 ML IVPB SCH (08:02)
[2020-10-19] MEDS: Sennosides/Docusate Sodium TABLET PO SCH (09:52)
[2020-10-19] MEDS: Insulin LISPRO 300 UNITS/3 ML VIAL SUBQ SCH ×4 (09:53→20:43)
[2020-10-19] MEDS: 0.9 % Sodium Chloride 1,000 ML IVC SCH (09:57)
[2020-10-19] MEDS: Budesonide/Formoterol 80/4.5 1 PUFF INH IH SCH ×2 (10:21→21:50)
[2020-10-19] MEDS: Tiotropium 10 INH DOSE IH SCH (10:23)
[2020-10-19 13:33] LABS: Estimated Average Glucose 171 mg/dl; Hemoglobin A1C 7.6 %
[2020-10-19 15:51] LABS: Ferritin > 1500 ng/mL (10-120)
[2020-10-19 16:17] LABS: C-Reactive Protein 224 mg/L (Less than 10)
[2020-10-19] MEDS: cefTRIAXone 1,000 MG in Water for inj. (sterile) 10 ML IVP SCH (17:59)
[2020-10-19] MEDS: Melatonin 3 MG TABLET PO SCH (20:52)
[2020-10-19] MEDS: Insulin DETEMIR 100 UNIT/ML X5UNITS SUBQ SCH (20:53)
[2020-10-19] MEDS ORDERED: Insulin DETEMIR 100 UNIT/ML X5UNITS SUBQ SCH (21:00)
[2020-10-20] MEDS: Insulin LISPRO 300 UNITS/3 ML VIAL SUBQ SCH ×4 (07:50→20:36)
[2020-10-20] MEDS: Cholecalciferol (D-3) 1,000 UNIT (25MCG) TABLET PO SCH (09:05)
[2020-10-20] MEDS: Vitamin B Complex/Vit C/Vit E 1 EACH TABLET PO SCH (09:05)
[2020-10-20] MEDS: Sennosides/Docusate Sodium TABLET PO SCH (09:06)
[2020-10-20] MEDS: Apixaban 5 MG TABLET PO SCH ×2 (09:06→20:36)
[2020-10-20] MEDS: Gabapentin 300 MG CAPSULE PO SCH ×2 (09:06→20:36)
[2020-10-20] MEDS: Venlafaxine XR (24 HR) 75 MG CAP.ER.24H PO SCH (09:06)
[2020-10-20] MEDS: DilTIAZem CD (24hr) 120 MG CAP.ER.24H PO SCH (09:06)
[2020-10-20] MEDS: Loratadine 10 MG TABLET PO SCH (09:06)
[2020-10-20] MEDS: Metoprolol 100 MG TABLET PO SCH ×2 (09:06→20:36)
[2020-10-20] MEDS: Azithromycin 500 MG in 0.9 % Sodium Chloride 250 ML IVPB SCH (09:08)
[2020-10-20] MEDS: Tiotropium 10 INH DOSE IH SCH (10:49)
[2020-10-20] MEDS: Budesonide/Formoterol 80/4.5 1 PUFF INH IH SCH ×2 (10:50→20:41)
[2020-10-20] MEDS: cefTRIAXone 1,000 MG in Water for inj. (sterile) 10 ML IVP SCH (16:03)
[2020-10-20] MEDS: Melatonin 3 MG TABLET PO SCH (20:36)
[2020-10-20] MEDS: Insulin DETEMIR 100 UNIT/ML X5UNITS SUBQ SCH (20:37)
[2020-10-21 05:15] LABS: Hematocrit 36.9 % (35.3-44.9); Hemoglobin 11.9 g/dL (11.5-15.4); Mean Corpuscular HGB Conc 32.2 g/dL (31.6-35.5); Mean Corpuscular Hemoglobin 28.6 pg (28.0-33.3); Mean Corpuscular Volume 88.7 fL (83.0-100.0); Mean Platelet Volume 11.2 fL (9.4-12.4); Platelet Count 184 K/mcL (140-400); Red Blood Count 4.16 M/mcL (3.82-4.97); Red Cell Distribution Width 15.9 % (11.5-14.5); White Blood Count 4.3 K/mcL (4.3-11.1)
[2020-10-21 05:36] LABS: BUN/Creatinine Ratio 26 (6-26); Blood Urea Nitrogen 23 mg/dL (8-23); Calcium 7.7 mg/dL (8.6-10.3); Carbon Dioxide 22 mEq/L (23-29); Chloride 115 mEq/L (98-107); Glucose 135 mg/dL (70-105); Osmolality,Calculated 306 (280-300); Sodium 145 mEq/L (136-145); eGFR For African Americans > 60 (> 60); eGFR For Non-African Americans > 60 (> 60)
[2020-10-21 08:23] LABS: C-Reactive Protein 112 mg/L (Less than 10)
[2020-10-21 08:41] LABS: Ferritin 1091 ng/mL (10-120)
[2020-10-21] MEDS: Azithromycin 500 MG in 0.9 % Sodium Chloride 250 ML IVPB SCH (09:14)
[2020-10-21] MEDS: Vitamin B Complex/Vit C/Vit E 1 EACH TABLET PO SCH (09:15)
[2020-10-21] MEDS: Loratadine 10 MG TABLET PO SCH (09:15)
[2020-10-21] MEDS: Metoprolol 100 MG TABLET PO SCH (09:15)
[2020-10-21] MEDS: Sennosides/Docusate Sodium TABLET PO SCH (09:15)
[2020-10-21] MEDS: Cholecalciferol (D-3) 1,000 UNIT (25MCG) TABLET PO SCH (09:15)
[2020-10-21] MEDS: Apixaban 5 MG TABLET PO SCH (09:15)
[2020-10-21] MEDS: Gabapentin 300 MG CAPSULE PO SCH (09:15)
[2020-10-21] MEDS: Venlafaxine XR (24 HR) 75 MG CAP.ER.24H PO SCH (09:15)
[2020-10-21] MEDS: DilTIAZem CD (24hr) 120 MG CAP.ER.24H PO SCH (09:16)
[2020-10-21] MEDS: Insulin LISPRO 300 UNITS/3 ML VIAL SUBQ SCH ×2 (09:36→13:29)
[2020-10-21] MEDS: Tiotropium 10 INH DOSE IH SCH (11:00)
[2020-10-21] MEDS: Budesonide/Formoterol 80/4.5 1 PUFF INH IH SCH (11:00)
[2020-10-21 11:36] VITALS: BP 157/79; PULSE 81; RESP 22; TEMP 97.7; O2SAT 92
[2020-10-22] MEDS ORDERED: Azithromycin 250 MG TABLET PO SCH (09:00)
== END 2020-10-21 17:53 | DRG 177 ==
LOC: INPGRE 10:05 → EMEROOGRE 10:05 → INPGRE 14:25
PROVIDERS: ADMIT Family Medicine; ATTEND Family Medicine